=== PATIENT | male | born 1975 | race Caucasian/White ===

== ENCOUNTER 2017-12-07 13:12 | Emergency (ER) | payer BC ==
[~2017-12-07] VITALS: Ht 182.9 cm; Wt 158.8 kg
[2017-12-07] MEDS ORDERED: KETOROLAC 60 MG/2 ML VIAL. IM ONE ×2 (14:00→14:02)
[2017-12-07] MEDS ORDERED: NAPR275T59 PO (14:04)
[2017-12-07] MEDS ORDERED: HYDR-2758 PO (14:04)
--- NOTE | 2017-12-07 14:09 | PHYS DOC ---
Past History Past Medical History: Diabetes, GERD, Hypertension, Other Additional Past Surgical Histo: microdiscectomy of L4-L5 Alcohol Use: None Drug Use: None Adult General Chief Complaint Chief Complaint: BACK PAIN OR INJURY [facility] HPI Patient is a pleasant overweight 42-year-old male with a known history of diabetes and hypertension who presents with Lower back pain that began several days ago after a coughing spell. Sitting on the floor when he had a coughing spell and felt a strain in his lower back that is worse with range of motion standing. He denies any numbness and tingling or pain like his prior neuropathic issue requiring lumbar microdiscectomy. Patient denies any bowel or bladder incontinence, denies any problems with weakness in his legs, denies any new or change paresthesias, denies any night sweats, weight loss, nausea, vomiting, abdominal pain, UTI symptoms, hematuria or penile discharge or bleeding. Patient denies any fevers or chills, denies any recent URI symptoms. Patient was seen by a PA given Flexeril and a short course of steroids for his symptoms which have improved symptoms would not resolve them. 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 and walks a great deal of pain is worse with range of motion but does not radiate to the bottom or the legs Review of Systems Review of Systems Constitutional: Denies fever or chills [] Eyes: Denies change in visual acuity, redness, or eye pain [] HENT: Denies nasal congestion or sore throat [] Respiratory: Denies cough or shortness of breath [] Cardiovascular: No additional information not addressed in HPI [] GI: Denies abdominal pain, nausea, vomiting, bloody stools or diarrhea [] : Denies dysuria or hematuria [] Musculoskeletal: He is main complaint is lower back pain without radiation no joint pain or joint swelling Integument: Denies rash or skin lesions [] Neurologic: Denies headache, focal weakness or sensory changes [] Endocrine: Denies polyuria or polydipsia [] All other systems were reviewed and found to be within normal limits, except as documented in this note. Current Medications Current Medications Current Medications Medications (Trade) Dose Ordered Sig/Ivonne Start Time Stop Time Status Last Admin Dose Admin Ketorolac Tromethamine (Toradol) 60 mg 1X ONCE 12/07/17 14:00 12/07/17 14:01 UNV Physical Exam Physical Exam Other vital signs recorded on the chart patient noted to be hypertensive which is chronic Constitutional: Well developed, well nourished, he is obese in no acute distress able to move around the seat without issue although there is pain with range of motion. [] HENT: Normocephalic, atraumatic, Cardiovascular:Heart rate regular rhythm, no murmur [] Lungs & Thorax: Bilateral breath sounds clear to auscultation [] Abdomen: Bowel sounds normal, soft, no tenderness, no masses, no pulsatile masses. [] Skin: Warm, dry, no erythema, no rash. [] Back: She has marked tenderness to palpation over the erector spinae muscles both right and left. There is no midline tenderness to palpation of midline warmth no rash no obvious signs of trauma no soft tissue swelling Extremities: No tenderness, no cyanosis, no clubbing, ROM intact, no edema. [] Neurologic: Alert and oriented X 3, normal motor function, normal sensory function, no focal deficits noted. 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 Patient is normal sensation to light touch and proprioception of the lower legs bilaterally with no saddle anesthesia[] Psychologic: Affect normal, judgement normal, mood normal. [] Current Patient Data Vital Signs Vital Signs Date Time Temp Pulse Resp B/P (MAP) Pulse Ox O2 Delivery O2 Flow Rate FiO2 12/07/17 13:26 98.0 97 22 98 EKG EKG [] Radiology/Procedures Radiology/Procedures [] Course & Med Decision Making Course & Med Decision Making Pertinent Labs and Imaging studies reviewed. (See chart for details) he presents with muscular skeletal back pain after is coughing episode. He was seen at a urgent care clinic by a PA prescribed Flexeril and a course of steroids. Patient has no history of heart disease or kidney disease but he is a diabetic. Patient thought better after these medications but not completely resolved. Patient only had less than 24 hours of treatment before coming into the ER today. He denies night sweats, weight loss, kidney stone symptoms, he is not had any prior tumors or direct trauma to his abdomen or pelvis. He denies any history of UTIs, pyelonephritis or IV drug use. My differential diagnosis for back pain includes the following but not limited to []CRAFTI Cauda Equina Renal Stone AAA ruptured Fracture Tumor (TB, metastatic disease) Infection UTI, pyelonephritis, epidural abscess. Patient's spine symptoms have stabilized while they have been evaluated in the department and are appropriate for outpatient work up. No evidence of cauda equina, cord compression, infiltrative, or infectious etiology. Patient was given Toradol here in the emergency department we had a small impression about use of NSAIDs and glucocorticoids and the additive effects on the GI tract and the tract patient watches usage very closely limited his his use of these medications a less than 5 days. He will follow-up with his primary care doctor. discharge: I've spoken with the patient and/or caregivers. I've explained the patient's condition, diagnosis and treatment plan based on information available to me at this time. I've answered the patient's and/or caregivers questions and addressed any concerns. The patient and/or caregivers have a good understanding the patient's diagnosis, condition and treatment plan as can be expected at this point. Vital signs have been stabilized. The patient's condition is stable for discharge from the emergency department. The patient will pursue further outpatient evaluation with her primary care provider or other designated consulting physician as outlined in the discharge instructions. Patient and/or caregivers are agreeable to this plan of care and follow-up instructions have been explained in detail. The patient and/or caregivers have received these instructions in written format and expressed understanding of these discharge instructions. The patient and her caregivers are aware that if any significant change in condition or worsening of symptoms should prompt him to immediately return to this of the closest emergency department. If an emergent department is not readily available I would encourage him to call 911. Romulo Disclaimer Dragon Disclaimer This electronic medical record was generated, in whole or in part, using a voice recognition dictation system. Departure Departure: Impression: Primary Impression: Back pain Additional Impression: Muscle spasm of back Disposition: HOME, SELF-CARE Condition: IMPROVED Referrals: DARLINE MARCUS MD (PCP) Patient Instructions: Back Pain, Adult, Muscle Strain Additional Instructions: discharge: I've spoken with the patient and/or caregivers. I've explained the patient's condition, diagnosis and treatment plan based on information available to me at this time. I've answered the patient's and/or caregivers questions and addressed any concerns. The patient and/or caregivers have a good understanding the patient's diagnosis, condition and treatment plan as can be expected at this point. Vital signs have been stabilized. The patient's condition is stable for discharge from the emergency department. The patient will pursue further outpatient evaluation with her primary care provider or other designated consulting physician as outlined in the discharge instructions. Patient and/or caregivers are agreeable to this plan of care and follow-up instructions have been explained in detail. The patient and/or caregivers have received these instructions in written format and expressed understanding of these discharge instructions. The patient and her caregivers are aware that if any significant change in condition or worsening of symptoms should prompt him to immediately return to this of the closest emergency department. If an emergent department is not readily available I would encourage him to call 911 NSAID warning these be careful not to use within the prescribed length of time. He is and affect NSAIDs on glucocorticoids as well as other medications such as STEVEN inhibitor's and SSRIs. Please follow-up with your regular doctor if your symptoms not improved despite treatment Scripts Hydrocodone Bit/Acetaminophen (HYDROCODONE-APAP 5-325 ) 1 Each Tablet 1 TAB PO PRN Q6HRS Y for PAIN for 3 Days, #14 TAB 0 Refills Prov: JORDYN ANDREA MD 12/07/17 Naproxen Sodium (NAPROXEN SODIUM) 275 Mg Tablet 275 MG PO BID for 7 Days, #14 TAB Prov: JORDYN ANDREA MD 12/07/17 Problem Qualifiers JORDYN ANDREA MD Dec 07, 2017 14:09
[2017-12-07 14:24] VITALS: BP 159/79
== END 2017-12-07 14:22 | disposition home or self-care (01) ==
LOC: ER 13:12
DX: M54.5 Low back pain (principal); R05 Cough; E11.9 Type 2 diabetes mellitus without complications; I10 Essential (primary) hypertension; K21.9 Gastro-esophageal reflux disease without esophagitis
CPT/HCPCS: 96372; 99283; J1885

== ENCOUNTER → 2018-03-29 | Outpatient (CLI) | payer BC ==
[~2018-03-29] MED LIST: HYDR-2758 PO; NAPR275T59 PO
--- NOTE | 2018-03-29 10:31 | RAD ---
Limited right breast ultrasound History: Right breast lump for one week. Painful. Patient has said that the lump and swelling has reduced in size in the last few days. 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 Comparison: None. Findings: Ultrasound imaging was performed of the right breast by nuclear medicine technologist. In the area of interest, in the right breast at 3:00, 3 cm from the nipple, there is a relatively well-defined lesion which appears slightly hyperechoic to the remainder of the subcutaneous fat. This is estimated to measure 4.0 x 4.3 x 2.9 cm. There is evidence of a mild amount of enhanced through transmission. Additional imaging was performed of the right breast at 2:00 and 4:00 to assess the normal breast tissue. Additional imaging was also performed of the left breast at 9:00 for use as comparison of the breast tissue. Impression: The palpable lump corresponds to a mildly hyperechoic lesion which measures 4.3 x 4.0 x 2.9 cm. Patient gives a history of trauma and has also stated that the lesion has decreased in size over the last few days. It is possible that this could represent focal hematoma within the subcutaneous fat of the right breast. Recommend continued clinical monitoring. A follow-up ultrasound could be performed in 3 months to ensure resolution. BI-RADS CATEGORY: 3 PROBABLY BENIGN FINDING(S)-SHORT INTERVAL FOLLOW-UP SUGGESTED RECOMMENDED FOLLOW-UP: 3M 3 MONTH FOLLOW-UP
== END | disposition home or self-care (01) ==
LOC: US 08:26
PROVIDERS: ATTEND Physician Assistant
DX: N63.12 Unspecified lump in the right breast, upper inner quadrant (principal); I10 Essential (primary) hypertension; E11.9 Type 2 diabetes mellitus without complications
CPT/HCPCS: 76641